=== PATIENT | male | born 1985 | race Two or more races ===

== ENCOUNTER 2016-10-28 10:24 | Emergency (ER) | payer BC ==
[~2016-10-28] VITALS: Ht 167.6 cm; Wt 109.0 kg
[2016-10-28 10:31] VITALS: BP 111/74
[2016-10-28] MEDS ORDERED: CEFTRIAXONE SODIUM 250 MG/VIAL IM ONE (11:15)
[2016-10-28] MEDS ORDERED: AZITHROMYCIN 500 MG TABLET PO SCH (11:15)
== END 2016-10-28 12:32 | disposition home or self-care (01) ==
LOC: ER 10:26
DX: Z20.2 Contact with and (suspected) exposure to infections with a predominantly sexual mode of transmission (principal); F12.10 Cannabis abuse, uncomplicated
CPT/HCPCS: 96372; 99283; J0696; Z7610

== ENCOUNTER 2016-11-23 08:51 | Emergency (ER) | payer BC ==
[~2016-11-23] VITALS: Ht 170.2 cm; Wt 107.0 kg
[2016-11-23 09:12] VITALS: BP 128/73
== END 2016-11-23 12:41 | disposition home or self-care (01) ==
LOC: ER 09:18
DX: S86.912A Strain of unspecified muscle(s) and tendon(s) at lower leg level, left leg, initial encounter (principal); F17.210 Nicotine dependence, cigarettes, uncomplicated; X58.XXXA Exposure to other specified factors, initial encounter; Y93.89 Activity, other specified; Y92.9 Unspecified place or not applicable; Y99.8 Other external cause status
CPT/HCPCS: 99282